=== PATIENT | male | born 1995 | race Two or more races ===

== ENCOUNTER 2017-05-16 15:29 | Emergency (ER) | payer SELFPAY ==
[~2017-05-16] VITALS: Ht 175.3 cm; Wt 61.8 kg
[2017-05-16 16:21] LABS: HEMATOCRIT 49.4 % (39.2-51.8); HEMOGLOBIN 16.8 g/dL (13.7-18.0); WHITE BLOOD COUNT 8.3 x10^3/uL (3.4-10)
[2017-05-16 16:35] LABS: BLOOD UREA NITROGEN 10 mg/dL (7-18)
[2017-05-16] MEDS ORDERED: LORazepam 1MG TABLET PO ONE (17:30)
[2017-05-16] MEDS ORDERED: LORazepam 1MG TABLET ONE (17:37)
[2017-05-16 18:37] VITALS: BP 121/76
== END 2017-05-16 18:39 | disposition home or self-care (01) ==
LOC: ED 18:25
DX: R07.89 Other chest pain (principal); F41.1 Generalized anxiety disorder; F12.10 Cannabis abuse, uncomplicated
CPT/HCPCS: 36415; 71010; 80048; 82040; 85025; 93005; 99285